=== PATIENT | female | born 1940 | race Caucasian/White ===

== ENCOUNTER 2020-09-19 17:48 | Emergency (ER) | payer MEDICARE, BC ==
[~2020-09-19] VITALS: Ht 170.2 cm; Wt 68.0 kg
[2020-09-19] MEDS ORDERED: VOLTAREN75 MG PO (19:39)
[2020-09-19 20:00] VITALS: BP 172/62
== END 2020-09-19 20:02 | disposition home or self-care (01) ==
LOC: ED 17:48
DX: M25.561 Pain in right knee (principal); M25.461 Effusion, right knee; I10 Essential (primary) hypertension; Z95.0 Presence of cardiac pacemaker; Z95.2 Presence of prosthetic heart valve; Z96.653 Presence of artificial knee joint, bilateral

== ENCOUNTER 2020-09-23 10:41 | Emergency (ER) | payer MEDICARE, BC ==
[2020-09-23] VITALS (8 sets, daily range): BP systolic 125–153; BP diastolic 57–71
[~2020-09-23] VITALS: Ht 170.2 cm; Wt 68.0 kg
[~2020-09-23 10:41] MED LIST: VOLTAREN75 MG PO
[2020-09-23] MEDS ORDERED: WARFARIN2 MG PO (11:01)
[2020-09-23] MEDS ORDERED: WARFARIN4 MG PO (11:01)
[2020-09-23] MEDS ORDERED: METOPROL TAR25 MG PO (11:02)
[2020-09-23] MEDS ORDERED: NORVASC2.5 M1 PO (11:03)
[2020-09-23] MEDS ORDERED: DILTIAZEM HCL60 MG PO (11:03)
[2020-09-23] MEDS ORDERED: VITAMIN D-11000 UNIT PO (11:04)
[2020-09-23 11:12] LABS: HEMATOCRIT 26.3 % (37.0-47.0); HEMOGLOBIN 8.6 g/dl (12.0-16.0); IMMATURE GRANULOCYTES 0.7 % (0.0-5.0); MEAN CELL VOLUME 92.9 fL CALC (80.0-100.0); MEAN CORPUSCULAR HGB 30.4 pG CALC (26.0-32.0); MEAN CORPUSCULAR HGB CONC 32.7 g/dL CAL (32.0-36.0); NEUT# 9.81 thou/uL (2.00-7.15); RED BLOOD COUNT 2.83 mill/uL (4.20-5.60); RED CELL DISTRI WIDTH 14.2 % (11.5-15.5)
[2020-09-23 11:31] LABS: CREATININE 1.1 mg/dL (0.5-1.0); POTASSIUM 3.4 mmol/l (3.5-5.1)
[2020-09-23 12:16] LABS: INTERNATIONAL NORMALIZED RATIO 12.7 RATIO (0.7-1.3); PROTHROMBIN TIME 112.7 SECONDS (9.0-12.5)
== END 2020-09-23 22:22 | disposition other institution (70) ==
LOC: ED 10:41
PROVIDERS: Family Medicine
PROC: 30233K1 Transfusion of Nonautologous Frozen Plasma into Peripheral Vein, Percutaneous Approach (ICD-10-PCS; principal; 2020-09-23)
PROC: 30233K1 Transfusion of Nonautologous Frozen Plasma into Peripheral Vein, Percutaneous Approach (ICD-10-PCS; 2020-09-23)
DX: D68.32 Hemorrhagic disorder due to extrinsic circulating anticoagulants (principal); K92.2 Gastrointestinal hemorrhage, unspecified; R23.3 Spontaneous ecchymoses; T45.515A Adverse effect of anticoagulants, initial encounter; I48.91 Unspecified atrial fibrillation; I10 Essential (primary) hypertension; Z95.0 Presence of cardiac pacemaker; Z95.2 Presence of prosthetic heart valve; Z79.01 Long term (current) use of anticoagulants
CPT/HCPCS: Q9967